=== PATIENT | female | born 1940 | race Caucasian/White ===

== ENCOUNTER 2017-02-24 18:54 | Emergency (ER) | payer OTHER ==
--- NOTE | 2017-02-24 20:23 | ED CLINICAL REPORT ---
Clinical Report - Physicians/Mid Levels [facility] [address] [place] [address] 02/24/2017 18:58 Patient: GALILEO MOSES Time Seen: 19:29 Feb 24 2017. Arrived- By private vehicle. Historian- patient. CPT: ER phys charges level 5 plus (#[id number]). EKG interpretation (#[id number]). HISTORY OF PRESENT ILLNESS Chief Complaint: INJURY TO RIGHT UPPER EXTREMITY (SHOULDER) and LEFT UPPER EXTREMITY (SHOULDER). The injury occurred just prior to arrival. Fell. Occurred at home. ( Injury occurred. This occurred just prior to arrival. It is described as radiating to the right upper extremity and shoulder and left upper extremity and shoulder. ( pt states that she fell forward on concrete steps while going up and fell with her arms out.).). The patient complains of moderate pain. No blow to the head, neck pain or loss of consciousness. Not dazed. REVIEW OF SYSTEMS No numbness, dizziness, hearing loss or chest pain or pain. No difficulty breathing, weakness, headache, nausea or abdominal pain. No laceration, vomiting, fatigue, fever or sore throat. No urinary frequency, head injury, weakness, diabetic symptoms or easy bruising. No difficulty with urination. The patient has no pain on weight bearing. No difficulty walking. All systems otherwise negative, except as recorded above. PAST HISTORY See nurses notes. Hypertension. Hysterectomy. Wrist surgery. Medications: 2 blood pressure pills. LIsinopril. Allergies: None. SOCIAL HISTORY Never smoker. No alcohol use or drug use. ADDITIONAL NOTES The nursing notes have been reviewed. PHYSICAL EXAM Vital Signs: 02/24/2017 19:24 BP: 152/69. HR: 72. RR: 20. O2 saturation: 93%. Temp: 97.7 F. Pain level now: 10/10. Appearance: Alert. Appears to be in pain. Patient in moderate distress. Head: Head non-tender. No swelling of head. Eyes: Pupils equal, round and reactive to light. ENT: No dental injury. Neck: Painless ROM. Non-tender. CVS: Heart sounds normal. Pulses normal. Respiratory: Breath sounds normal. Chest nontender. Abdomen: No visible injury. Soft and nontender. Back: No tenderness. Skin: Skin intact. Skin warm. Normal skin color. Extremities: Right shoulder: moderate tenderness and mild swelling and deformity consistent with a humerus fracture located in the anterior and lateral aspect of the shoulder. Limited ROM due to pain. Neurovascular intact distally. No abrasion or ecchymosis. No joint effusion. Left shoulder: moderate tenderness located in the anterior and lateral aspect of the shoulder. Limited ROM due to pain. Neurovascular intact distally. No swelling, laceration, abrasion, ecchymosis or deformity. No joint effusion. Neuro: Oriented X 3. No motor deficit. No sensory deficit. Reflexes normal. LABS, X-RAYS, AND EKG EKG: Normal sinus rhythm. Normal P waves. Normal QRS complex. Non-specific ST segment / T wave abnormalities. Prior EKG unavailable. The study has been interpreted contemporaneously. The study has been independently viewed by me. The EKG appears to be a good tracing. X-Rays: Chest X-ray negative. Rt Humerus X-ray: Surgical neck fracture of the proximal right humerus. Views: AP and lateral. Technique: good. The X-rays were independently viewed by me and interpreted contemporaneously by me. Lt Humerus X-ray: Surgical neck fracture of the proximal left humerus. Views: AP and lateral. Technique: good. The X-rays were independently viewed by me and interpreted contemporaneously by me. Laboratory Tests: CBC w Diff: (ANTHONY: 02/24/2017 20:00) ( MsgRcvd 02/24/2017 20:48) Final results Test Result Flag Units (Reference) WHITE BLOOD COUNT 10.2 K/uL (4.5-11.5) RED BLOOD COUNT 4.70 M/uL (4.00-5.20) HEMOGLOBIN 13.8 gm/dL (12.0-16.0) HEMATOCRIT 41.8 % (36.0-46.0) MEAN CELL VOLUME 89 fL (80-100) MEAN CORPUSCULAR HGB 29 pg (26-34) MEAN CORPUSCULAR HGB CONC 33 g/dL (31-37) RED CELL DISTRIBUTION WIDTH 13.8 % (11.6-14.8) PLATELET COUNT 233 K/uL (150-400) NEUTROPHIL % 74.3 % (50-75) LYMPH % 16.0 L % (25-40) MONO % 8.6 % (3-14) EOSINOPHIL % 0.8 % (0-4) BASOPHIL % 0.3 % (0-2) PT with INR: (ANTHONY: 02/24/2017 20:00) ( [facility] 02/24/2017 20:55) Final results Test Result Flag Units (Reference) INR 1.0 (0.8-1.2) Low Intensity Therapy: INR 1.5-2.0 PT range 18.5-23.1Mod.Intensity Therapy: INR 2.0-3.0 PT range 23.1-31.5High Intensity Therapy: INR 2.5-3.5 PT range 27.4-35.5High Intensity Therapy 2: INR 3.0-4.0 PT range 31.5-39.3 CHEM 13 PANEL: (ANTHONY: 02/24/2017 20:00) ( [facility] 02/24/2017 21:14) Final results Test Result Flag Units (Reference) GLUCOSE 179 H mg/dL (70-110) BUN 14 mg/dL (7-18) CREATININE 0.9 mg/dL (0.6-1.3) Estimated GFR >60 mL/min Estimated GFR- >60 mL/min Note: Persistent reduction over 3 months in eGFR<60 mL/min/1.73 m2 defines CKD. Patients with eGFR values>=60 mL/min/1.73 m2 may also have CKD if evidence ofpersistent proteinuria. Additional information may be foundat www.[email or web address]. SODIUM 142 mmol/L (136-145) POTASSIUM 2.7 *L mmol/L (3.5-5.1) CRITICAL RESULTS CALLEDCalled to [facility] 02/24/172112Were 2 patient identifiers used? YWas the result read back? Y CHLORIDE 105 mmol/L (98-107) CARBON DIOXIDE 27 mmol/L (21-32) CALCIUM 9.1 mg/dL (8.5-10.1) TOTAL PROTEIN 6.5 g/dL (6.4-8.2) ALBUMIN 3.4 g/dL (3.3-5.0) BILIRUBIN, TOTAL 0.4 mg/dL (0.0-1.0) ALKALINE PHOSPHATASE 98 U/L (46-116) AST (SGOT) 21 U/L (15-37) ALT (SGPT) 27 U/L (12-78) MAGNESIUM 2.0 mg/dL (1.8-2.4) CPK 172 U/L (24-260) TROPONIN I <0.05 ng/mL (0.00-1.5) TROPONIN REFERENCE RANGE:<0.1 NEGATIVE0.1-1.5 INDETERMINANT>1.5 POSITIVE . PROGRESS AND PROCEDURES Course of Care: IV NS Demerol 12.5 mg IV: NO change Dilaudid 0.5 mg IV times 2 with good relief. Now resting. Bilateral slings. KCL 40 meq po KCL 20 meq IV. Discussed case with on-call health care provider, (Vinny Trammell: Triage MD for and he has found a bed at [facility] and is making arrangements with the accepting physicians.). Reviewed test results. Agreed upon treatment plan and decision to admit. Refers case to other health care provider. Patient/family counseled. Disposition: Transferred to [facility]. CLINICAL IMPRESSION Closed displaced and moderately angulated transverse, comminuted (2 fragments) fracture of the proximal, surgical neck of the right and left humerus. Fall from stairs and on same level by tripping. Hypokalemia due to diuretics. (Electronically signed by Vinny Bell MD 02/25/2017 10:22)
--- NOTE | 2017-02-24 20:23 | ED CLINICAL REPORT ---
Clinical Report - Physicians/Mid Levels [facility] [address] [place] [address] 02/24/2017 18:58 Patient: GALILEO MOSES Time Seen: 19:29 Feb 24 2017. Arrived- By private vehicle. Historian- patient. CPT: ER phys charges level 5 plus (#[id number]). EKG interpretation (#[id number]). HISTORY OF PRESENT ILLNESS Chief Complaint: INJURY TO RIGHT UPPER EXTREMITY (SHOULDER) and LEFT UPPER EXTREMITY (SHOULDER). The injury occurred just prior to arrival. Fell. Occurred at home. ( Injury occurred. This occurred just prior to arrival. It is described as radiating to the right upper extremity and shoulder and left upper extremity and shoulder. ( pt states that she fell forward on concrete steps while going up and fell with her arms out.).). The patient complains of moderate pain. No blow to the head, neck pain or loss of consciousness. Not dazed. REVIEW OF SYSTEMS No numbness, dizziness, hearing loss or chest pain or pain. No difficulty breathing, weakness, headache, nausea or abdominal pain. No laceration, vomiting, fatigue, fever or sore throat. No urinary frequency, head injury, weakness, diabetic symptoms or easy bruising. No difficulty with urination. The patient has no pain on weight bearing. No difficulty walking. All systems otherwise negative, except as recorded above. PAST HISTORY See nurses notes. Hypertension. Hysterectomy. Wrist surgery. Medications: 2 blood pressure pills. LIsinopril. Allergies: None. SOCIAL HISTORY Never smoker. No alcohol use or drug use. ADDITIONAL NOTES The nursing notes have been reviewed. PHYSICAL EXAM Vital Signs: 02/24/2017 19:24 BP: 152/69. HR: 72. RR: 20. O2 saturation: 93%. Temp: 97.7 F. Pain level now: 10/10. Appearance: Alert. Appears to be in pain. Patient in moderate distress. Head: Head non-tender. No swelling of head. Eyes: Pupils equal, round and reactive to light. ENT: No dental injury. Neck: Painless ROM. Non-tender. CVS: Heart sounds normal. Pulses normal. Respiratory: Breath sounds normal. Chest nontender. Abdomen: No visible injury. Soft and nontender. Back: No tenderness. Skin: Skin intact. Skin warm. Normal skin color. Extremities: Right shoulder: moderate tenderness and mild swelling and deformity consistent with a humerus fracture located in the anterior and lateral aspect of the shoulder. Limited ROM due to pain. Neurovascular intact distally. No abrasion or ecchymosis. No joint effusion. Left shoulder: moderate tenderness located in the anterior and lateral aspect of the shoulder. Limited ROM due to pain. Neurovascular intact distally. No swelling, laceration, abrasion, ecchymosis or deformity. No joint effusion. Neuro: Oriented X 3. No motor deficit. No sensory deficit. Reflexes normal. LABS, X-RAYS, AND EKG EKG: Normal sinus rhythm. Normal P waves. Normal QRS complex. Non-specific ST segment / T wave abnormalities. Prior EKG unavailable. The study has been interpreted contemporaneously. The study has been independently viewed by me. The EKG appears to be a good tracing. X-Rays: Chest X-ray negative. Rt Humerus X-ray: Surgical neck fracture of the proximal right humerus. Views: AP and lateral. Technique: good. The X-rays were independently viewed by me and interpreted contemporaneously by me. Lt Humerus X-ray: Surgical neck fracture of the proximal left humerus. Views: AP and lateral. Technique: good. The X-rays were independently viewed by me and interpreted contemporaneously by me. Laboratory Tests: CBC w Diff: (ANTHONY: 02/24/2017 20:00) ( MsgRcvd 02/24/2017 20:48) Final results Test Result Flag Units (Reference) WHITE BLOOD COUNT 10.2 K/uL (4.5-11.5) RED BLOOD COUNT 4.70 M/uL (4.00-5.20) HEMOGLOBIN 13.8 gm/dL (12.0-16.0) HEMATOCRIT 41.8 % (36.0-46.0) MEAN CELL VOLUME 89 fL (80-100) MEAN CORPUSCULAR HGB 29 pg (26-34) MEAN CORPUSCULAR HGB CONC 33 g/dL (31-37) RED CELL DISTRIBUTION WIDTH 13.8 % (11.6-14.8) PLATELET COUNT 233 K/uL (150-400) NEUTROPHIL % 74.3 % (50-75) LYMPH % 16.0 L % (25-40) MONO % 8.6 % (3-14) EOSINOPHIL % 0.8 % (0-4) BASOPHIL % 0.3 % (0-2) PT with INR: (ANTHONY: 02/24/2017 20:00) ( [facility] 02/24/2017 20:55) Final results Test Result Flag Units (Reference) INR 1.0 (0.8-1.2) Low Intensity Therapy: INR 1.5-2.0 PT range 18.5-23.1Mod.Intensity Therapy: INR 2.0-3.0 PT range 23.1-31.5High Intensity Therapy: INR 2.5-3.5 PT range 27.4-35.5High Intensity Therapy 2: INR 3.0-4.0 PT range 31.5-39.3 CHEM 13 PANEL: (ANTHONY: 02/24/2017 20:00) ( [facility] 02/24/2017 21:14) Final results Test Result Flag Units (Reference) GLUCOSE 179 H mg/dL (70-110) BUN 14 mg/dL (7-18) CREATININE 0.9 mg/dL (0.6-1.3) Estimated GFR >60 mL/min Estimated GFR- >60 mL/min Note: Persistent reduction over 3 months in eGFR<60 mL/min/1.73 m2 defines CKD. Patients with eGFR values>=60 mL/min/1.73 m2 may also have CKD if evidence ofpersistent proteinuria. Additional information may be foundat [email or web address]. SODIUM 142 mmol/L (136-145) POTASSIUM 2.7 *L mmol/L (3.5-5.1) CRITICAL RESULTS CALLEDCalled to [facility] 02/24/172112Were 2 patient identifiers used? YWas the result read back? Y CHLORIDE 105 mmol/L (98-107) CARBON DIOXIDE 27 mmol/L (21-32) CALCIUM 9.1 mg/dL (8.5-10.1) TOTAL PROTEIN 6.5 g/dL (6.4-8.2) ALBUMIN 3.4 g/dL (3.3-5.0) BILIRUBIN, TOTAL 0.4 mg/dL (0.0-1.0) ALKALINE PHOSPHATASE 98 U/L (46-116) AST (SGOT) 21 U/L (15-37) ALT (SGPT) 27 U/L (12-78) MAGNESIUM 2.0 mg/dL (1.8-2.4) CPK 172 U/L (24-260) TROPONIN I <0.05 ng/mL (0.00-1.5) TROPONIN REFERENCE RANGE:<0.1 NEGATIVE0.1-1.5 INDETERMINANT>1.5 POSITIVE . PROGRESS AND PROCEDURES Course of Care: IV NS Demerol 12.5 mg IV: NO change Dilaudid 0.5 mg IV times 2 with good relief. Now resting. Bilateral slings. KCL 40 meq po KCL 20 meq IV. Discussed case with on-call health care provider, (Vinny Trammell: Triage MD for and he has found a bed at [facility] and is making arrangements with the accepting physicians.). Reviewed test results. Agreed upon treatment plan and decision to admit. Refers case to other health care provider. Patient/family counseled. Disposition: Transferred to [facility]. CLINICAL IMPRESSION Closed displaced and moderately angulated transverse, comminuted (2 fragments) fracture of the proximal, surgical neck of the right and left humerus. Fall from stairs and on same level by tripping. Hypokalemia due to diuretics. (Electronically signed by Vinny Bell MD 02/25/2017 10:22)
--- NOTE | 2017-02-24 20:23 | ED ORDER SUMMARY ---
..... Patient: GALILEO MOSES OrderSheet [facility] VisitID: [id number] [place] [address] 76y, F Registration Date/Time: 02/24/2017 ORDER SHEET Weight: 79.3 kg (stated) Allergies: None GENERAL ORDERS: Humerus Left Urgent (19:36 02/24/2017 Jelena HEAD) (Ack 19:39 CHagerty ER Fastener Technologist) (20:10 KKnebel R.N.) Humerus Right Urgent (19:36 02/24/2017 Jelena HEAD) (Ack 19:39 CHagerty ER Fastener Technologist) (20:10 KKnebel R.N.) Chest 1V Urgent (20:01 02/24/2017 Jelena HEAD) (Ack 20:04 CHagerty ER Fastener Technologist) (20:38 CHagerty ER Fastener Technologist) Cardiac Panel Stat (20:17 02/24/2017 Jelena HEAD) (Ack 20:19 CHagerty ER Fastener Technologist) (21:21 KKnebel R.N.) UA-Culture if indicated Urgent (20:17 02/24/2017 Jelena HEAD) (Ack 20:19 CHagerty ER Fastener Technologist) (21:21 KKnebel R.N.) PT with INR Urgent (20:17 02/24/2017 Jelena HEAD) (Ack 20:19 CHagerty ER Fastener Technologist) (21:21 KKnebel R.N.) EKG - ER Stat (21:24 02/24/2017 Jelena HEAD) (21:24 KKnebel R.N.) - (clear liquids.) (21:41 02/24/2017 Jelena HEAD) (Ack 21:41 CHagerty ER Fastener Technologist) (22:29 JQuivey R.N.) BMP Urgent (00:36 02/25/2017 CHagerty ER Fastener Technologist written order Jelena HEAD) (0:37 CHagerty ER Fastener Technologist) MEDICATION ORDERS: KCl PO 40 meq (NOW) (21:24 02/24/2017 Jelena HEAD) (21:32 KKnebel R.N.) IV FLUIDS: IV NS : initial bolus none -, then 250 mL/hr for 4h (NOW); Routine (19:36 02/24/2017 Jelena HEAD) (19:51 Karla R.N.) Demerol IV 12.5 mg (NOW) (19:36 02/24/2017 Jelena HEAD) (19:48 Karla R.N.) Dilaudid IV 0.5 mg (NOW) (20:07 02/24/2017 Jelena HEAD) (20:12 IRAJnerocio R.N.) KCl IV 20 meq/100mL (Run no faster than 10 units/hr) (21:26 02/24/2017 Jelena HEAD) (23:31 Karla R.N.) Dilaudid IV 0.5 mg (q 1 hour IV prn pain. Keep oximetery on at all times. ) (21:39 02/24/2017 Jelena HEAD) (23:15 Karla R.N.) Zofran IV 4 mg (IV q 4 hours prn nausea) (21:40 02/24/2017 Jelena HEAD) (Ack 23:29 [facility]) ORDER SHEET NOTES: [Electronically signed by Raquel Dolan R.N. (03:06 02/25/2017)] [Electronically signed by Vinny Bell MD (10:02/25/2017)] [Electronically locked/signed by Raquel Dolan R.N. (03:06 02/25/2017)]
--- NOTE | 2017-02-24 20:23 | ED ORDER SUMMARY ---
..... Patient: GALILEO MOSES OrderSheet [facility] VisitID: [id number] [place] [address] 76y, F Registration Date/Time: 02/24/2017 ORDER SHEET Weight: 79.3 kg (stated) Allergies: None GENERAL ORDERS: Humerus Left Urgent (19:36 02/24/2017 Jelena HEAD) (Ack 19:39 CHagerty ER Science Interpreter) (20:10 KKnebel R.N.) Humerus Right Urgent (19:36 02/24/2017 Jelena HEAD) (Ack 19:39 CHagerty ER Science Interpreter) (20:10 KKnebel R.N.) Chest 1V Urgent (20:01 02/24/2017 Jelena HEAD) (Ack 20:04 CHagerty ER Science Interpreter) (20:38 CHagerty ER Science Interpreter) Cardiac Panel Stat (20:17 02/24/2017 Jelena HEAD) (Ack 20:19 CHagerty ER Science Interpreter) (21:21 KKnebel R.N.) UA-Culture if indicated Urgent (20:17 02/24/2017 Jelena HEAD) (Ack 20:19 CHagerty ER Science Interpreter) (21:21 KKnebel R.N.) PT with INR Urgent (20:17 02/24/2017 Jelena HEAD) (Ack 20:19 CHagerty ER Science Interpreter) (21:21 KKnebel R.N.) EKG - ER Stat (21:24 02/24/2017 Jelena HEAD) (21:24 KKnebel R.N.) - (clear liquids.) (21:41 02/24/2017 Jelena HEAD) (Ack 21:41 CHagerty ER Science Interpreter) (22:29 JQuivey R.N.) BMP Urgent (00:36 02/25/2017 CHagerty ER Science Interpreter written order Jelena HEAD) (0:37 CHagerty ER Science Interpreter) MEDICATION ORDERS: KCl PO 40 meq (NOW) (21:24 02/24/2017 Jelena HEAD) (21:32 KKnebel R.N.) IV FLUIDS: IV NS : initial bolus none -, then 250 mL/hr for 4h (NOW); Routine (19:36 02/24/2017 Jelena HEAD) (19:51 Karla R.N.) Demerol IV 12.5 mg (NOW) (19:36 02/24/2017 Jelena HEAD) (19:48 Karla R.N.) Dilaudid IV 0.5 mg (NOW) (20:07 02/24/2017 Jelena HEAD) (20:12 IRAJnerocio R.N.) KCl IV 20 meq/100mL (Run no faster than 10 units/hr) (21:26 02/24/2017 Jelena HEAD) (23:31 Karla R.N.) Dilaudid IV 0.5 mg (q 1 hour IV prn pain. Keep oximetery on at all times. ) (21:39 02/24/2017 Jelena HEAD) (23:15 Karla R.N.) Zofran IV 4 mg (IV q 4 hours prn nausea) (21:40 02/24/2017 Jelena HEAD) (Ack 23:29 [facility]) ORDER SHEET NOTES: [Electronically signed by Raquel Dolan R.N. (03:06 02/25/2017)] [Electronically signed by Vinny Bell MD (10:02/25/2017)] [Electronically locked/signed by Raquel Dolan R.N. (03:06 02/25/2017)]
--- NOTE | 2017-02-24 20:23 | ED NURSING NOTES ---
Clinical Report - Nurses [facility] [address] [place] [address] 02/24/2017 18:58 Patient: GALILEO MOSES TRIAGE Triage time 19:10 Feb 24 2017. Acuity: LEVEL 4. Chief Complaint: RIGHT UPPER EXTREMITY PAIN. LEFT UPPER EXTREMITY PAIN. --19:29 Terri Ledbetter R.N. 19:24 02/24/17. BP: 152/69. HR: 72. RR: 20. O2 saturation: 93%. Temp: 97.7 F. Pain level now: 05/16. --19:29 Terri Ledbetter R.N. Weight: 79.3 kg stated. Height/Length: 62 inches Per Patient. BMI: 32. --19:29 Terri Ledbetter R.N. Medications LIsinopril. --19:25 Terri Ledbetter R.N. 2 blood pressure pills. --19:26 Terri Ledbetter R.N. Allergies None. --19:26 Terri Ledbetter R.N. History Arrived by private vehicle. Historian: patient. Accompanied by friend. Injury occurred. This occurred just prior to arrival. It is described as radiating to the right upper extremity and shoulder and left upper extremity and shoulder. ( pt states that she fell forward on concrete steps while going up and fell with her arms out.). She sustained skin abrasion (right lower leg). No neck pain. Treatment [facility]: Ice. PAST MEDICAL HX: Tetanus status: up-to-date. Immunizations: up-to-date. The patient is post-menopausal. SOCIAL HX: Never smoker. No alcohol use or drug use. No infectious disease exposure. SELF HARM ASSESSMENT: A self harm assessment was performed. The patient answered "no" to the question "Do you have thoughts of harming or killing yourself?" and "Have you recently had thoughts about harming or killing others?". FALL RISK ASSESSMENT: Fall risk assessment completed. No fall risk identified. NUTRITIONAL RISK ASSESSMENT: The nutritional risk assessment revealed no deficiencies. FUNCTIONAL ASSESSMENT: Functional assessment: no impairments noted. LEARNING NEEDS ASSESSMENT: The learning needs assessment revealed no barriers. ABUSE ASSESSMENT: Abuse assessment: The patient was asked "Do you feel safe in your home?". SKIN INTEGRITY ASSESSMENT: Skin integrity risk assessment completed. No skin integrity risk identified. --:29 Terri Ledbetter R.N. PROBLEMS: Hypertension. --: Terri Ledbetter R.N. ADDITIONAL SURGERIES: Hysterectomy. Wrist surgery. --: Terri Ledbetter R.N. Interventions ID band on patient. To room. --:29 Terri Ledbetter R.N. PHYSICAL ASSESSMENT EXTREMITIES: Limited ROM present in the right upper arm and left upper arm. Neuro-vascular status intact to the extremity. Right arm: tenderness of the upper arm. Left arm: tenderness of the upper arm. SKIN: Skin is warm and dry. --19:30 Terri Ledbetter R.N. NURSING PROGRESS NOTES Cold pack applied. Patient gowned. Patient identifiers checked. Call light placed in reach. Bed placed in lowest position. Brakes of bed on. --19:30 Terri Ledbetter R.N. 19:41 02/24/2017 Site #1 started via IV in the left wrist with an 20g angiocath, with aseptic technique and good blood return; one attempt. Blood drawn: rainbow set. Labeled in the presence of the patient and held. Saline lock flushed with 10 mL saline. --19:41 Terri Ledbetter R.N. 19:48 02/24/2017 Demerol (Meperidine HCl) IVP 12.5 mg given over 1 minute(s) via site #1. Allergies verified and confirmed 5 rights. IV patency established. IV site checked: no pain, redness, or swelling. IV flushed thoroughly pre- and post-medication administration. IVP given by RN. --19:48 Terri Ledbetter R.N. 19:50 02/24/2017 Started bag #1 1000 mL IV Fluids IV NS (Saline); at 1000 mL/hr over 4 hour(s) via site #1. Allergies verified and confirmed 5 rights. IV patency established. IV site checked: no pain, redness, or swelling. IV flushed thoroughly pre- and post-medication administration. --19:51 Terri Ledbetter R.N. <<STRICKEN ENTRY-- 20:12 02/24/2017 Dilaudid (HYDROmorphone HCl PF) IVP 0.5 mg given over 2 minute(s) via site #1. Allergies verified, confirmed 5 rights and sedative warning given to the patient. IV patency established. IV site checked: no pain, redness, or swelling. IV flushed thoroughly pre- and post-medication administration. IVP given by RN. --20:12 Terri Ledbetter R.N. --END STRIKE>> Change to Details. --21:37 Terri Ledbetter R.N. 20:13 02/24/17. BP: 109/40. HR: 81. RR: 16. O2 saturation: 95%. Pain level now: 03/16. --20:13 Terri Ledbetter R.N. Reassessment after medication administered. She is calm and resting quietly. Overall patient status is improved- she states feels the same. GENERAL / NEURO / PSYCH: Appears in pain. --20:13 Terri Ledbetter R.N. 20:10 02/24/2017 Dilaudid (HYDROmorphone HCl PF) IVP 0.5 mg given over 2 minute(s) via site #1. Allergies verified, confirmed 5 rights and sedative warning given to the patient. IV patency established. IV site checked: no pain, redness, or swelling. IV flushed thoroughly pre- and post-medication administration. IVP given by RN. --21:23 Terri Ledbetter R.N. 21:14 02/24/17. Critical value relayed to ED by Lab. Critical value received by Gerda. K: 2.7. Critical value read back. Verified lab result and patient ID. ED physician notifed of critical value. --21:14 Gerda Weiner 21:21 02/24/17. BP: 134/68. HR: 80. RR: 12. O2 saturation: 94% at 2 liters/minute. O2 started via nasal cannula. --21:23 Terri Ledbetter R.N. 21:20 02/24/2017 Dilaudid (HYDROmorphone HCl PF) IVP 0.5 mg given over 2 minute(s) via site #1. Allergies verified, confirmed 5 rights and sedative warning given to the patient. IV patency established. IV site checked: no pain, redness, or swelling. IV flushed thoroughly pre- and post-medication administration. IVP given by RN. --21:37 Terri Ledbetter R.N. 21:32 02/24/2017 KCL (Potassium Chloride ER) PO Tablets 40 meq given. Allergies verified and confirmed 5 rights. --21:32 Terri Ledbetter R.N. EKG time: (2139). EKG was ordered, performed by a tech and shown to the ED physician. --22:26 Lianna Chakraborty 23:15 02/24/2017 Dilaudid (HYDROmorphone HCl PF) IVP 0.5 mg given over 2 minute(s) via site #1. Allergies verified, confirmed 5 rights and sedative warning given to the patient. IV patency established. IV site checked: no pain, redness, or swelling. IV flushed thoroughly pre- and post-medication administration. IVP given by RN. --23:15 Terri Ledbetter R.N. 23:14 02/24/17. BP: 157/78. HR: 83. RR: 12. O2 saturation: 99%. Pain level now: 8/10. --23:15 Terri Ledbetter R.N. Reassessment after medication administered. She is calm and resting quietly. Overall patient status is the same- she states feels the same. --23:15 Terri Ledbetter R.N. GENERAL / NEURO / PSYCH: Alert. Oriented X 4. RESPIRATORY: No respiratory distress. SKIN: Skin is warm and dry. --23:16 Terri Ledbetter R.N. 22:30 02/24/2017 Started 20 meq of KCL (Potassium Chloride) IVPB in bag #1 100 mL; at 50 mL/hr over 2 hour(s) via site #1 via IV pump. Allergies verified and confirmed 5 rights. IV patency established. IV site checked: no pain, redness, or swelling. IV flushed thoroughly pre- and post-medication administration. --23:31 Terri Ledbetter R.N. 23:31 02/24/2017 IV Fluids IV NS Discontinued: bag #1 infused. Total amount infused: 1000 mL. IV patency established. IV site checked: no pain, redness, or swelling. IV flushed thoroughly. --23:31 Terri Ledbetter R.N. 23:32 02/24/2017 Started bag #1 1000 mL IV Fluids IV NS (Saline); at 100 mL/hr over 2 hour(s) via site #1 via IV pump. Allergies verified and confirmed 5 rights. IV patency established. IV site checked: no pain, redness, or swelling. IV flushed thoroughly pre- and post-medication administration. --23:32 Terri Ledbetter R.N. 00:07 02/25/2017 IV Fluids IV NS Discontinued: bag #1 completed. Total amount infused: 200 mL. --00:07 Gerda Weiner 00:37 02/25/17. BP: 153/70. HR: 71. RR: 14. O2 saturation: 99%. --00:37 Gerda Weiner 00:56 02/25/2017 Dilaudid (HYDROmorphone HCl PF) IVP 0.5 mg given over 30 second(s) via site #1. Allergies verified, confirmed 5 rights and sedative warning given to the patient. IV patency established. IV site checked: no pain, redness, or swelling. IV flushed thoroughly pre- and post-medication administration. IVP given by RN. --00:56 Gerda Weiner Care transferred and report received (from TRAY Lorenz). --01:09 Raquel Dolan R.N. 01:30. ( introduced self to patient. notified patient of reason for wait and plan of care.). --01:52 Raquel Dolan R.N. 02:00 02/25/17. BP: 151/69. HR: 71. RR: 16. O2 saturation: 100% on room air. Temp: deferred. Pain level now: 8/10. --02:15 Raquel Dolan R.N. 02:24 02/25/2017 Dilaudid (HYDROmorphone HCl PF) IVP 0.5 mg given over 30 second(s) via site #1. Allergies verified, confirmed 5 rights and sedative warning given to the patient. IV patency established. IV site checked: no pain, redness, or swelling. IV flushed thoroughly pre- and post-medication administration. IVP given by RN. --02:39 Raquel Dolan R.N. DISPOSITION / DISCHARGE 00:04 02/25/2017 KCL IVPB Discontinued: bag #1 infused. Total amount infused: 100 mL. IV patency established. IV site checked: no pain, redness, or swelling. IV flushed thoroughly. --00:04 Wilmer Schmidt R.N. 03:04 02/25/17. Transferred to [facility]. Transported via ambulance by tech and transport team with IV. Report was given to a nurse via a phone call. Report included patient's care, treatment, medications, reviewed medication reconcilliation, and condition (including any recent changes or anticipated changes). All questions were answered. Report was acknowledged and care was transferred. Patient's personal items include: shirt, pants, undergarments and purse; items were placed in belongings bag, given to the patient and transported with the patient. Collection of belongings was witnessed by 1 nurse. --03:04 Raquel Dolan R.N. 03:05 02/25/17. BP: 147/68. HR: 74. RR: 16. O2 saturation: 100% on room air. Temp: deferred. Pain level now: 02/13. --03:05 Raquel Dolan R.N. Locked/Released at 02/25/2017 3:06 by Raquel Dolan R.N.
--- NOTE | 2017-02-24 22:44 | DIAGNOSTIC IMAGING REPORT ---
PROCEDURE: XR HUMERUS - RIGHT INDICATION: TRAUMA/INJURY TECHNIQUE: AP and lateral views. COMPARISON: None. FINDINGS: There is a severely comminuted fracture of the humeral head with marked ventral displacement and angulation of the distal fragment. The mid and distal humerus is normal. IMPRESSION: 1. Severely comminuted and displaced fractures of the right humeral head.
--- NOTE | 2017-02-24 22:48 | DIAGNOSTIC IMAGING REPORT ---
PROCEDURE: XR HUMERUS - LEFT INDICATION: TRAUMA/INJURY TECHNIQUE: AP and lateral views. COMPARISON: None. FINDINGS: There is a fracture of the surgical neck of the left humerus which demonstrates mild impaction and valgus angulation. There is evidence of chondrocalcinosis of the left glenohumeral joint with dystrophic calcification of the rotator cuff. The mid and distal humerus is normal. IMPRESSION: 1. Mildly impacted fracture the surgical neck of the left humerus. 2. Chondrocalcinosis of the left glenohumeral joint with focal calcification of the rotator cuff. Consider calcium pyrophosphate deposition disease (i.e. pseudogout) or calcium hydroxyapatite disease (i.e. calcific tendinosis).
--- NOTE | 2017-02-24 22:49 | DIAGNOSTIC IMAGING REPORT ---
PROCEDURE: XR CHEST 1 VIEW INDICATION: FALL TECHNIQUE: Portable AP view (203 5 hours). COMPARISON: None. FINDINGS: Lungs are clear. Heart and mediastinum are normal. There is a severely comminuted fracture of the right humeral head with marked displacement of the distal fragment. There is a mildly impacted and angulated fracture of the surgical neck of the left humerus. IMPRESSION: 1. Severely comminuted and displaced fracture of the right humeral head. 2. Mildly impacted fracture of the surgical neck of the left humerus. 3. Normal chest.
--- NOTE | 2017-02-25 10:22 | ED DISCHARGE INSTRUCTIONS ---
Patient: GALILEO MOSES General Instructions [facility] VisitID: [id number] [place] [address] 76y, F Registration Date/Time: 02/24/2017 Closed displaced and moderately angulated transverse, comminuted (2 fragments) fracture of the proximal, surgical neck of the right and left humerus. Fall from stairs and on same level by tripping. Hypokalemia due to diuretics. ADDITIONAL INFORMATION Mechanical Fall You have had a fall today. It appears that the cause is mechanical. That means that you slipped, tripped or lost your balance. If your fall had been due to fainting or a seizure, further tests would be required. Home Care: Rest today and resume your normal activities when you are feeling back to normal. If you were injured during the fall, follow the advice from your doctor regarding care of your injury. You may use acetaminophen (Tylenol) or ibuprofen (Motrin, Advil) to control pain, unless another pain medicine was prescribed. [NOTE: If you have chronic liver or kidney disease or ever had a stomach ulcer or GI bleeding, talk with your doctor before using these medicines.] Fall Prevention: Was there anything that caused your fall that can be fixed, removed, or replaced? Make your home safe by keeping walkways clear of objects you may trip over. Use non-slip pads under rugs. Do not walk in poorly lit areas. Do not stand on chairs or wobbly ladders. Use caution when reaching overhead or looking upward. This position can cause a loss of balance. Be sure your shoes fit properly, have non-slip bottoms and are in good condition. Be cautious when going up and down curbs, and walking on uneven sidewalks. If your balance is poor, consider using a cane or walker. Stay as active as you can. Balance, flexibility, strength, and endurance all come from exercise. They all play a role in preventing falls. Follow Up with your doctor or as advised by our staff. Get Prompt Medical Attention if any of the following occur: Repeated mechanical falls, or unexplained falls Dizziness, fainting or seizure Severe headache Chest pain or shortness of breath Palpitations (very rapid or very slow or irregular heartbeat) Blood in vomit, stools (black or red color) Weakness of an arm or leg or one side of the face Difficulty with speech or vision Shoulder Fracture [Shoulder Immobilizer] You have a break (fracture) of the shoulder. This may be a small crack in the bone. Or it may be a major break with the broken parts pushed out of position. If there is only a crack in the bone and no bone fragments are out of place, a shoulder fracture is usually treated with a shoulder immobilizer. This is a special type of sling. (Casts are not used for this type of fracture.) Healing of the bone usually occurs in 4-6 weeks. More serious injuries may require surgery to put the bones back into the correct position for healing. Home Care: Leave the shoulder immobilizer in place. This will support the injured arm at your side. This is the best position for bone healing. The shoulder immobilizer is adjustable. If it becomes loose, adjust it so that your forearm is horizontal (level with the ground). Your hand should be level with the elbow. Apply an ice pack (ice cubes in a plastic bag, wrapped in a towel) over the injured area for 20 minutes every 1-2 hours the first day. Continue with ice packs 3-4 times a day for the next two days, then as needed for the relief of pain and swelling. You may use acetaminophen (Tylenol) or ibuprofen (Motrin, Advil) to control pain, unless another pain medicine was prescribed. (NOTE : If you have chronic liver or kidney disease or ever had a stomach ulcer or GI bleeding, talk with your doctor before using these medicines.) Do not remove the sling before your next exam unless you were instructed to do so. Follow Up with your doctor in one week, or as advised by our staff, to be sure the bone is healing properly. A shoulder joint will become stiff if left in a sling for too long. Ask your doctor when it is safe to begin [id number] exercises. Get Prompt Medical Attention if any of the following occur: Fingers become swollen, cold, blue, numb or tingly Large amount of swelling or bruising of the shoulder or upper arm Increasing shoulder pain or arm swelling You have been given the following additional information: Fall, Mechanical Fracture, Shoulder (Electronically signed by Vinny Bell MD 02/25/2017 10:22)
--- NOTE | 2017-02-25 10:22 | ED MAR SUMMARY ---
..... Medication Administration Record [facility] [address] [place] [address] Patient: GALILEO MOSES Visit ID: [id number] 76y, F Weight: 79.3 kg Height/Length: 62 in BMI: 32 ALLERGIES: None Given 19:48 02/24/2017 Terri Ledbetter R.N. Medication Administered: DEMEROL [IVP] (MEPERIDINE HCL), Dose: 12.5 mg IVP over 1 minute(s), Site: #1 left wrist. Medication Ordered: Demerol IV 12.5 mg (NOW). Start 19:50 02/24/2017 Terri Ledbetter R.N., Stop 23:31 02/24/2017 Terri Ledbetter R.N. Medication Administered: IV NS (SALINE), Dose: IV Fluids over 4 hour(s), Rate: 1000 mL/hr, Dispensed: 1000 mL bag, Site: #1 left wrist. Medication Ordered: IV NS : initial bolus none -, then 250 mL/hr for 4h (NOW); Routine. Given 20:10 02/24/2017 Terri Ledbetter R.N. Medication Administered: DILAUDID [IVP] (HYDROMORPHONE HCL PF), Dose: 0.5 mg IVP over 2 minute(s), Site: #1 left wrist. Medication Ordered: Dilaudid IV 0.5 mg (NOW). Given 21:20 02/24/2017 Terri Ledbetter R.N. Medication Administered: DILAUDID [IVP] (HYDROMORPHONE HCL PF), Dose: 0.5 mg IVP over 2 minute(s), Site: #1 left wrist. Medication Ordered: Dilaudid IV 0.5 mg (NOW). Given 21:32 02/24/2017 Terri Ledbetter R.N. Medication Administered: KCL [PO] (POTASSIUM CHLORIDE ER), Dose: 40 meq Tablets PO. Medication Ordered: KCl PO 40 meq (NOW). Start 22:30 02/24/2017 Terri Ledbetter R.N., Stop 00:04 02/25/2017 Quivey, Wilmer, R.N. Medication Administered: KCL [IVPB] (POTASSIUM CHLORIDE), Dose: 20 meq IVPB over 2 hour(s), Rate: 50 mL/hr, Dispensed: 100 mL bag, Site: #1 left wrist. Medication Ordered: KCl IV 20 meq/100mL (Run no faster than 10 units/hr). Given 23:15 02/24/2017 Terri Ledbetter R.N. Medication Administered: DILAUDID [IVP] (HYDROMORPHONE HCL PF), Dose: 0.5 mg IVP over 2 minute(s), Site: #1 left wrist. Medication Ordered: Dilaudid IV 0.5 mg (q 1 hour IV prn pain. Keep oximetery on at all times. ). Start 23:32 02/24/2017 Terri Ledbetter RMeagan, Stop 00:07 02/25/2017 Gerda Weiner, Medication Administered: IV NS (SALINE), Dose: IV Fluids over 2 hour(s), Rate: 100 mL/hr, Dispensed: 1000 mL bag, Site: #1 left wrist. Medication Ordered: IV NS : initial bolus none -, then 250 mL/hr for 4h (NOW); Routine. Given 00:56 02/25/2017 Gerda Weiner, Medication Administered: DILAUDID [IVP] (HYDROMORPHONE HCL PF), Dose: 0.5 mg IVP over 30 second(s), Site: #1 left wrist. Medication Ordered: Dilaudid IV 0.5 mg (q 1 hour IV prn pain. Keep oximetery on at all times. ). Given 02:24 02/25/2017 Raquel Dolan RLitzyN. Medication Administered: DILAUDID [IVP] (HYDROMORPHONE HCL PF), Dose: 0.5 mg IVP over 30 second(s), Site: #1 left wrist. Medication Ordered: Dilaudid IV 0.5 mg (q 1 hour IV prn pain. Keep oximetery on at all times. ).
--- NOTE | 2017-02-25 10:22 | ED MED RECONCILIATION SUMMARY ---
Patient: GALILEO MOSES Medication Reconciliation Report [facility] VisitID: [id number] [address] [place] [address] 76y, F Registration Date/Time: 02/24/2017 Weight: 79.3 kg Height/Length: 62 in. BMI: 32.0 ALLERGIES: None The patient's Home Medications are listed below: THE FOLLOWING MEDICATIONS NEED TO BE RECONCILED: 2 blood pressure pills LIsinopril The source(s) of the original Home Medication information: Not obtained. The following Medications were given to the patient in the Emergency Department: Demerol [IVP] IVP 12.5 mg, administered: 02/24/2017 7:48:00 PM IV NS IV Fluids bolus 0, then 1000 mL/hr, administered: 02/24/2017 7:50:00 PM Dilaudid [IVP] IVP 0.5 mg, administered: 02/24/2017 9:20:00 PM Dilaudid [IVP] IVP 0.5 mg, administered: 02/24/2017 8:10:00 PM KCL [PO] PO 40 meq, administered: 02/24/2017 9:32:00 PM Dilaudid [IVP] IVP 0.5 mg, administered: 02/24/2017 11:15:00 PM KCL [IVPB] IVPB bolus 0, then 20 meq 50 mL/hr, administered: 02/24/2017 10:30:00 PM IV NS IV Fluids bolus 0, then 100 mL/hr, administered: 02/24/2017 11:32:00 PM Dilaudid [IVP] IVP 0.5 mg, administered: 02/25/2017 12:56:00 AM Dilaudid [IVP] IVP 0.5 mg, administered: 02/25/2017 2:24:00 AM The following Medications were prescribed to the patient: None.
--- NOTE | 2017-02-25 10:22 | ED MAR SUMMARY ---
..... Medication Administration Record [facility] [address] [place] [place] [address] Patient: GALILEO MOSES Visit ID: [id number] 76y, F Weight: 79.3 kg Height/Length: 62 in BMI: 32 ALLERGIES: None Given 19:48 02/24/2017 Terri Ledbetter R.N. Medication Administered: DEMEROL [IVP] (MEPERIDINE HCL), Dose: 12.5 mg IVP over 1 minute(s), Site: #1 left wrist. Medication Ordered: Demerol IV 12.5 mg (NOW). Start 19:50 02/24/2017 Terri Ledbetter R.N., Stop 23:31 02/24/2017 Terri Ledbetter R.N. Medication Administered: IV NS (SALINE), Dose: IV Fluids over 4 hour(s), Rate: 1000 mL/hr, Dispensed: 1000 mL bag, Site: #1 left wrist. Medication Ordered: IV NS : initial bolus none -, then 250 mL/hr for 4h (NOW); Routine. Given 20:10 02/24/2017 Terri Ledbetter R.N. Medication Administered: DILAUDID [IVP] (HYDROMORPHONE HCL PF), Dose: 0.5 mg IVP over 2 minute(s), Site: #1 left wrist. Medication Ordered: Dilaudid IV 0.5 mg (NOW). Given 21:20 02/24/2017 Terri Ledbetter R.N. Medication Administered: DILAUDID [IVP] (HYDROMORPHONE HCL PF), Dose: 0.5 mg IVP over 2 minute(s), Site: #1 left wrist. Medication Ordered: Dilaudid IV 0.5 mg (NOW). Given 21:32 02/24/2017 Terri Ledbetter R.N. Medication Administered: KCL [PO] (POTASSIUM CHLORIDE ER), Dose: 40 meq Tablets PO. Medication Ordered: KCl PO 40 meq (NOW). Start 22:30 02/24/2017 Terri Ledbetter R.N., Stop 00:04 02/25/2017 Quivey, Wilmer, R.N. Medication Administered: KCL [IVPB] (POTASSIUM CHLORIDE), Dose: 20 meq IVPB over 2 hour(s), Rate: 50 mL/hr, Dispensed: 100 mL bag, Site: #1 left wrist. Medication Ordered: KCl IV 20 meq/100mL (Run no faster than 10 units/hr). Given 23:15 02/24/2017 Treri Ledbetter R.N. Medication Administered: DILAUDID [IVP] (HYDROMORPHONE HCL PF), Dose: 0.5 mg IVP over 2 minute(s), Site: #1 left wrist. Medication Ordered: Dilaudid IV 0.5 mg (q 1 hour IV prn pain. Keep oximetery on at all times. ). Start 23:32 02/24/2017 Terri Ledbetter RMeagan, Stop 00:07 02/25/2017 Gerda Weiner, Medication Administered: IV NS (SALINE), Dose: IV Fluids over 2 hour(s), Rate: 100 mL/hr, Dispensed: 1000 mL bag, Site: #1 left wrist. Medication Ordered: IV NS : initial bolus none -, then 250 mL/hr for 4h (NOW); Routine. Given 00:56 02/25/2017 Gerda Weiner, Medication Administered: DILAUDID [IVP] (HYDROMORPHONE HCL PF), Dose: 0.5 mg IVP over 30 second(s), Site: #1 left wrist. Medication Ordered: Dilaudid IV 0.5 mg (q 1 hour IV prn pain. Keep oximetery on at all times. ). Given 02:24 02/25/2017 Raquel Dolan RLitzyN. Medication Administered: DILAUDID [IVP] (HYDROMORPHONE HCL PF), Dose: 0.5 mg IVP over 30 second(s), Site: #1 left wrist. Medication Ordered: Dilaudid IV 0.5 mg (q 1 hour IV prn pain. Keep oximetery on at all times. ).
--- NOTE | 2017-02-25 10:22 | ED MED RECONCILIATION SUMMARY ---
Patient: GALILEO MOSES Medication Reconciliation Report [facility] VisitID: [id number] [address] [place] [address] 76y, F Registration Date/Time: 02/24/2017 Weight: 79.3 kg Height/Length: 62 in. BMI: 32.0 ALLERGIES: None The patient's Home Medications are listed below: THE FOLLOWING MEDICATIONS NEED TO BE RECONCILED: 2 blood pressure pills LIsinopril The source(s) of the original Home Medication information: Not obtained. The following Medications were given to the patient in the Emergency Department: Demerol [IVP] IVP 12.5 mg, administered: 02/24/2017 7:48:00 PM IV NS IV Fluids bolus 0, then 1000 mL/hr, administered: 02/24/2017 7:50:00 PM Dilaudid [IVP] IVP 0.5 mg, administered: 02/24/2017 9:20:00 PM Dilaudid [IVP] IVP 0.5 mg, administered: 02/24/2017 8:10:00 PM KCL [PO] PO 40 meq, administered: 02/24/2017 9:32:00 PM Dilaudid [IVP] IVP 0.5 mg, administered: 02/24/2017 11:15:00 PM KCL [IVPB] IVPB bolus 0, then 20 meq 50 mL/hr, administered: 02/24/2017 10:30:00 PM IV NS IV Fluids bolus 0, then 100 mL/hr, administered: 02/24/2017 11:32:00 PM Dilaudid [IVP] IVP 0.5 mg, administered: 02/25/2017 12:56:00 AM Dilaudid [IVP] IVP 0.5 mg, administered: 02/25/2017 2:24:00 AM The following Medications were prescribed to the patient: None.
== END 2017-02-25 03:04 | disposition short-term general hospital (02) ==
LOC: ED SRH 18:54
DX: S42.221A 2-part displaced fracture of surgical neck of right humerus, initial encounter for closed fracture (principal); S42.222A 2-part displaced fracture of surgical neck of left humerus, initial encounter for closed fracture; E87.6 Hypokalemia; T50.2X5A Adverse effect of carbonic-anhydrase inhibitors, benzothiadiazides and other diuretics, initial encounter; W10.8XXA Fall (on) (from) other stairs and steps, initial encounter; Y93.9 Activity, unspecified; Y99.9 Unspecified external cause status; Y92.9 Unspecified place or not applicable; I10 Essential (primary) hypertension; Z79.899 Other long term (current) drug therapy